=== PATIENT | female | born 1930 | race Hispanic/Latino ===

== ENCOUNTER 2017-08-31 21:15 | Inpatient (IN) | payer MEDICARE ==
[~2017-08-31] VITALS: Ht 157.5 cm; Wt 65.3 kg
[2017-08-31 21:55] LABS: BASOPHILS % (AUTO) 0.1 % (0.0-5.0); EOSINOPHILS % (AUTO) 0.5 % (0.0-8.0); HEMATOCRIT 34.7 % (36-48); LYMPHOCYTES % (AUTO) 7.5 % (21.0-51.0); MEAN CORPUSCULAR HEMOGLOBIN 31.4 pg (27.0-33.0); MEAN CORPUSCULAR HGB CONC 35.5 g/dL (32.0-36.0); MEAN CORPUSCULAR VOLUME 88.3 fL (79-99); MONOCYTES % (AUTO) 13.5 % (3.0-13.0); NEUTROPHILS % (AUTO) 78.4 % (40.0-77.0); PLATELET COUNT (AUTO) 190 K/uL (130-400); RED BLOOD CELL COUNT(AUTO) 3.93 MIL/uL (4.00-5.50); RED CELL DISTRIBUTION WIDTH 13.4 % (11.0-15.5); WHITE BLOOD COUNT (AUTO) 13.2 K/uL (4.8-10.8)
[2017-08-31 22:06] LABS: POTASSIUM 3.5 mmol/L (3.5-5.1)
[2017-08-31 22:07] LABS: INR 1.06 (0.85-1.15); PARTIAL THROMBOPLASTIN TIME 31.2 SEC (26.3-35.5); PROTHROMBIN TIME 11.1 SEC (9.6-11.6)
[2017-08-31] MEDS ORDERED: IPRATROPIUM/ALBUTEROL SULFATE 3 ML SOLUTION IH ONE (22:09)
[2017-08-31 22:19] LABS: ALBUMIN 3.3 g/dL (3.5-5.0); BILIRUBIN,TOTAL 0.5 mg/dL (0.2-1.0); TOTAL PROTEIN, SERUM 7.2 g/dL (6.0-8.3)
[2017-08-31 22:50] LABS: B-TYPE NATRIURETIC PEPTIDE 64 pg/mL (0-100)
[2017-08-31] MEDS ORDERED: SODIUM CHLORIDE 0.9% 1000ML 1,000 ML IV ONE (23:04)
[2017-08-31] MEDS ORDERED: CEFTRIAXONE SODIUM 2 GM VIAL ONE (23:26)
[2017-08-31] MEDS ORDERED: VANCOMYCIN 1GM+NS 250ML 250 ML IV ONE (23:26)
[2017-09-01] MEDS ORDERED: LORAZEPAM 2 MG/ML 1 ML VIAL ONE (00:01)
[2017-09-01] MEDS ORDERED: CEFTRIAXONE 1GM/D5W 50ML 50 ML IV SCH (00:45)
[2017-09-01] MEDS ORDERED: DEXTROSE 50%-WATER 50 ML DISP.SYRIN IV PRN (00:45)
[2017-09-01] MEDS: AZITHROMYCIN 500MG+NS 250ML 250 ML IV SCH (00:45)
[2017-09-01] MEDS ORDERED: POTASSIUM CHLORIDE 10% ELIXIR 20 MEQ/15 ML UDCUP PO PRN (00:45)
[2017-09-01] MEDS ORDERED: HYDRALAZINE HCL 20 MG/ML VIAL IV PRN (00:45)
[2017-09-01] MEDS ORDERED: NITROGLYCERIN 0.4 MG SL TAB SL PRN (00:45)
[2017-09-01] MEDS ORDERED: ACETAMINOPHEN 325 MG TAB PO PRN (00:45)
[2017-09-01] MEDS ORDERED: DiphenhydrAMINE HCL 50 MG/ML VIAL IV PRN (00:45)
[2017-09-01] MEDS ORDERED: LACTULOSE 20 GM/30 ML UDCUP PO PRN (00:45)
[2017-09-01] MEDS ORDERED: ONDANSETRON HCL 4 MG/2 ML VIAL IV PRN (00:45)
[2017-09-01] MEDS ORDERED: GLUCAGON 1MG KIT 1 MG ML IM PRN (00:45)
[2017-09-01] MEDS ORDERED: LIDOCAINE HCL-MPF 1% 2ML VIAL IVP PRN (00:45)
[2017-09-01] MEDS ORDERED: POTASSIUM CHLORIDE 20MEQ/100ML 100 ML IV PRN (00:45)
[2017-09-01] MEDS ORDERED: SODIUM CHLORIDE 0.9% 1000ML 1,000 ML IV SCH (01:15)
[2017-09-01] MEDS: CEFTRIAXONE SODIUM 1 GM IVP SCH (02:00)
[2017-09-01] MEDS: IPRATROPIUM/ALBUTEROL SULFATE 3 ML SOLUTION IH SCH ×3 (05:54→18:49)
[2017-09-01] MEDS ORDERED: AZITHROMYCIN 500MG+NS 250ML 250 ML IV ONE (06:39)
[2017-09-01 06:47] LABS: HEMATOCRIT 31.9 % (36-48); MEAN CORPUSCULAR HEMOGLOBIN 30.6 pg (27.0-33.0); MEAN CORPUSCULAR HGB CONC 34.5 g/dL (32.0-36.0); MEAN CORPUSCULAR VOLUME 88.6 fL (79-99); PLATELET COUNT (AUTO) 172 K/uL (130-400); RED CELL DISTRIBUTION WIDTH 13.3 % (11.0-15.5); WHITE BLOOD COUNT (AUTO) 12.4 K/uL (4.8-10.8)
[2017-09-01 06:54] LABS: CREATININE 1.5 mg/dL (0.5-1.5); POTASSIUM 3.6 mmol/L (3.5-5.1)
[2017-09-01] MEDS: INSULIN HUMULIN R 100 UNIT/ML 3ML SQ SCH ×4 (07:30→21:00)
[2017-09-01] MEDS: FAMOTIDINE 20MG TAB 20 MG TAB PO SCH ×2 (09:00→20:16)
[2017-09-01] MEDS ORDERED: FAMOTIDINE 20MG TAB 20 MG TAB ONE (09:37)
[2017-09-01] MEDS ORDERED: GUAIFENESIN-DM 200/20 MG 10 ML PO PRN (13:15)
[2017-09-01 14:40] VITALS: BP 98/59
[2017-09-01] MEDS ORDERED: GUAIFENESIN SUGAR-FREE 100 MG/5 ML UDCUP ONE ×2 (14:55)
[2017-09-01] MEDS ORDERED: OLAN5TAB27 PO (17:51)
[2017-09-01] MEDS ORDERED: OLAN2.5T29 PO (17:51)
[2017-09-01] MEDS ORDERED: CITA40TA6 PO (17:51)
[2017-09-01 20:00] VITALS: BP 113/64
[2017-09-01] MEDS: GUAIFENESIN-DM 200/20 MG 10 ML PO PRN (20:15)
[2017-09-01] MEDS: POTASSIUM CHLORIDE 20 MEQ ERTAB PO PRN (20:16)
[2017-09-01] MEDS: OLANZAPINE 5 MG TAB PO SCH (21:07)
[2017-09-01] MEDS: CITALOPRAM 20 MG TABLET PO SCH (21:07)
[2017-09-01] MEDS: LORAZEPAM 2 MG/ML 1 ML VIAL IVP PRN (21:15)
[2017-09-01 23:42] VITALS: BP 147/62
[2017-09-02] MEDS: IPRATROPIUM/ALBUTEROL SULFATE 3 ML SOLUTION IH SCH ×4 (00:42→19:16)
[2017-09-02] MEDS: AZITHROMYCIN 500MG+NS 250ML 250 ML IV SCH (01:17)
[2017-09-02] MEDS: CEFTRIAXONE SODIUM 1 GM IVP SCH (01:17)
[2017-09-02] MEDS ORDERED: DIPHENHYDRAMINE HCL 25 MG CAPSULE ONE (02:13)
[2017-09-02] MEDS: DIPHENHYDRAMINE HCL 25 MG CAPSULE PO SCH ×2 (02:15→21:48)
[2017-09-02] MEDS: POTASSIUM CHLORIDE 20 MEQ ERTAB PO PRN (02:15)
[2017-09-02] MEDS: LORAZEPAM 2 MG/ML 1 ML VIAL IVP PRN ×2 (03:28→04:42)
[2017-09-02 03:59] VITALS: BP 136/64
[2017-09-02 04:28] LABS: HEMATOCRIT 30.4 % (36-48); MEAN CORPUSCULAR HGB CONC 36.3 g/dL (32.0-36.0); MEAN CORPUSCULAR VOLUME 88.2 fL (79-99); PLATELET COUNT (AUTO) 178 K/uL (130-400); RED BLOOD CELL COUNT(AUTO) 3.45 MIL/uL (4.00-5.50); RED CELL DISTRIBUTION WIDTH 13.4 % (11.0-15.5); WHITE BLOOD COUNT (AUTO) 9.5 K/uL (4.8-10.8)
[2017-09-02 04:38] LABS: CREATININE 1.4 mg/dL (0.5-1.5); POTASSIUM 4.2 mmol/L (3.5-5.1)
[2017-09-02] MEDS ORDERED: LORAZEPAM 2 MG/ML 1 ML VIAL IVP ONE (04:45)
[2017-09-02] MEDS: INSULIN HUMULIN R 100 UNIT/ML 3ML SQ SCH ×4 (06:56→21:00)
[2017-09-02 07:00] VITALS: BP 97/54
[2017-09-02] MEDS: GUAIFENESIN-DM 200/20 MG 10 ML PO PRN (09:36)
[2017-09-02] MEDS: FAMOTIDINE 20MG TAB 20 MG TAB PO SCH ×2 (09:37→21:48)
[2017-09-02] MEDS: OLANZAPINE 5 MG TAB PO SCH ×2 (09:37→21:48)
[2017-09-02 12:01] VITALS: BP 155/74
[2017-09-02 19:36] VITALS: BP 136/91
[2017-09-02] MEDS: ACETAMINOPHEN 325 MG TAB PO PRN (19:56)
[2017-09-02] MEDS: CITALOPRAM 20 MG TABLET PO SCH (21:48)
[2017-09-02 23:44] VITALS: BP 120/50
[2017-09-03] MEDS: IPRATROPIUM/ALBUTEROL SULFATE 3 ML SOLUTION IH SCH ×5 (00:06→23:57)
[2017-09-03] MEDS: AZITHROMYCIN 500MG+NS 250ML 250 ML IV SCH (00:22)
[2017-09-03] MEDS: CEFTRIAXONE SODIUM 1 GM IVP SCH (02:08)
[2017-09-03 03:54] VITALS: BP 145/79
[2017-09-03] MEDS: ACETAMINOPHEN 325 MG TAB PO PRN ×3 (04:27→23:34)
[2017-09-03] MEDS: INSULIN HUMULIN R 100 UNIT/ML 3ML SQ SCH ×4 (06:00→21:00)
[2017-09-03 07:00] VITALS: BP 145/67
[2017-09-03 11:00] VITALS: BP 128/53
[2017-09-03] MEDS: FAMOTIDINE 20MG TAB 20 MG TAB PO SCH ×2 (11:10→23:12)
[2017-09-03] MEDS: OLANZAPINE 5 MG TAB PO SCH ×2 (11:11→23:12)
[2017-09-03 12:58] LABS: HEMATOCRIT 33.8 % (36-48); MEAN CORPUSCULAR HEMOGLOBIN 30.3 pg (27.0-33.0); MEAN CORPUSCULAR HGB CONC 33.9 g/dL (32.0-36.0); MEAN CORPUSCULAR VOLUME 89.4 fL (79-99); PLATELET COUNT (AUTO) 174 K/uL (130-400); RED BLOOD CELL COUNT(AUTO) 3.78 MIL/uL (4.00-5.50); RED CELL DISTRIBUTION WIDTH 13.6 % (11.0-15.5); WHITE BLOOD COUNT (AUTO) 8.6 K/uL (4.8-10.8)
[2017-09-03 15:00] VITALS: BP 123/94
[2017-09-03 19:51] VITALS: BP 114/70
[2017-09-03] MEDS: CITALOPRAM 20 MG TABLET PO SCH (23:12)
[2017-09-03 23:31] VITALS: BP 129/62
[2017-09-04] MEDS: DIPHENHYDRAMINE HCL 25 MG CAPSULE PO SCH (02:15)
[2017-09-04] MEDS: AZITHROMYCIN 500MG+NS 250ML 250 ML IV SCH (03:14)
[2017-09-04] MEDS: CEFTRIAXONE SODIUM 1 GM IVP SCH (03:14)
[2017-09-04 03:17] VITALS: BP 137/78
[2017-09-04 06:29] LABS: HEMATOCRIT 30.9 % (36-48); MEAN CORPUSCULAR HEMOGLOBIN 31.5 pg (27.0-33.0); MEAN CORPUSCULAR HGB CONC 35.8 g/dL (32.0-36.0); PLATELET COUNT (AUTO) 249 K/uL (130-400); RED CELL DISTRIBUTION WIDTH 13.5 % (11.0-15.5); WHITE BLOOD COUNT (AUTO) 9.3 K/uL (4.8-10.8)
[2017-09-04 07:00] VITALS: BP 128/48
[2017-09-04] MEDS: IPRATROPIUM/ALBUTEROL SULFATE 3 ML SOLUTION IH SCH ×4 (07:07→23:59)
[2017-09-04] MEDS: INSULIN HUMULIN R 100 UNIT/ML 3ML SQ SCH ×4 (07:30→21:00)
[2017-09-04] MEDS: FAMOTIDINE 20MG TAB 20 MG TAB PO SCH ×2 (10:24→21:10)
[2017-09-04] MEDS: OLANZAPINE 5 MG TAB PO SCH ×2 (10:24→21:09)
[2017-09-04 11:00] VITALS: BP 152/73
[2017-09-04 16:00] VITALS: BP 150/112
[2017-09-04] MEDS: CITALOPRAM 20 MG TABLET PO SCH (21:09)
[2017-09-04 22:30] VITALS: BP 113/78
[2017-09-05 00:51] VITALS: BP 105/75
[2017-09-05] MEDS: CEFTRIAXONE SODIUM 1 GM IVP SCH (01:18)
[2017-09-05] MEDS: AZITHROMYCIN 500MG+NS 250ML 250 ML IV SCH (01:19)
[2017-09-05 04:05] LABS: HEMATOCRIT 30.4 % (36-48); MEAN CORPUSCULAR HEMOGLOBIN 30.7 pg (27.0-33.0); MEAN CORPUSCULAR HGB CONC 34.7 g/dL (32.0-36.0); MEAN CORPUSCULAR VOLUME 88.6 fL (79-99); PLATELET COUNT (AUTO) 288 K/uL (130-400); RED BLOOD CELL COUNT(AUTO) 3.44 MIL/uL (4.00-5.50); RED CELL DISTRIBUTION WIDTH 13.6 % (11.0-15.5)
[2017-09-05 04:48] VITALS: BP 132/88
[2017-09-05] MEDS: INSULIN HUMULIN R 100 UNIT/ML 3ML SQ SCH (06:50)
[2017-09-05 07:00] VITALS: BP 116/61
[2017-09-05] MEDS: IPRATROPIUM/ALBUTEROL SULFATE 3 ML SOLUTION IH SCH ×2 (07:16→11:22)
[2017-09-05] MEDS: FAMOTIDINE 20MG TAB 20 MG TAB PO SCH (10:28)
[2017-09-05] MEDS: OLANZAPINE 5 MG TAB PO SCH (10:28)
[2017-09-05 12:00] VITALS: BP 133/69
[2017-09-05 16:00] VITALS: BP 125/58
== END 2017-09-05 16:30 | DRG 193 ==
LOC: EDH 21:15 → EDHIP 23:42 → 3DH 09-01 15:20
PROVIDERS: ADMIT Family Medicine; ATTEND Family Medicine
DX: J18.9 Pneumonia, unspecified organism (principal); G93.40 Encephalopathy, unspecified; N17.9 Acute kidney failure, unspecified; E86.0 Dehydration; E11.9 Type 2 diabetes mellitus without complications; I10 Essential (primary) hypertension; E78.5 Hyperlipidemia, unspecified; F02.80 Dementia in other diseases classified elsewhere, unspecified severity, without behavioral disturbance, psychotic disturbance, mood disturbance, and anxiety; G30.9 Alzheimer's disease, unspecified; F41.9 Anxiety disorder, unspecified; Z90.710 Acquired absence of both cervix and uterus
CPT/HCPCS: 36415; 70450; 71046; 71250; 80048; 80053; 82550; 82553; 82948; 83874; 83880; 84484; 85025; 85027; 85610; 85730; 87040; 87804; 93005; 94640; 94664; A4218; J0456; J0696; J1200; J2060; J3370; J7030; Q0163